=== PATIENT | female | born 1995 | race Caucasian/White ===

== ENCOUNTER 2019-02-22 06:06 | Inpatient (IN) ==
[2019-02-22] MEDS ORDERED: LACTATED RINGERS 1,000 ML IV SCH ×2 (06:30→10:00)
[2019-02-22] MEDS ORDERED: ceFAZolin 2,000 MG in PREMIX 1 EACH IV ONE (06:30)
[2019-02-22] MEDS ORDERED: CITRIC ACID/SODIUM CITRATE 30 ML UDCUP PO PRN (06:30)
[2019-02-22] MEDS ORDERED: FAMOTIDINE 20 MG/2 ML VIAL IV PRN (06:30)
[2019-02-22] MEDS ORDERED: OXYTOCIN/LR 30 UNIT/1,000 ML BAG IV PRN (06:35)
[2019-02-22] MEDS ORDERED: OXYTOCIN 10 UNIT/ML VIAL IM PRN (06:35)
[2019-02-22] MEDS ORDERED: INFLUENZA VIRUS VACCINE 0.5 ML SYRINGE IM ONE (06:43)
[2019-02-22 07:02] LABS: Basophils % 0.6 % (0.0-0.8); Eosinophils # 0.2 10*3/uL (0.0-0.87); Eosinophils % 3.2 % (0.00-10.9); Hematocrit 30.8 VOL% (35.7-47.0); Hemoglobin 10.4 GM/DL (12.0-16.0); Immature Granulocytes % 0.4 %; Immature Granulocytes Absolute 0.03 #; Lymphocytes # 1.2 10*3/uL (1.4-4.0); Lymphocytes % 17.7 % (21.3-54.2); Mean Corpuscular HGB Conc 33.8 GM/DL (32-36); Mean Platelet Volume 10.5 FL (9.6-12.0); Neutrophils % 70.1 % (38.7-73.9); Platelet Count 235 T/CUMM (130-400); Red Cell Distribution Width 12.9 % (9.3-17.3); White Blood Count 6.8 T/CUMM (4-12)
[2019-02-22] MEDS ORDERED: ROPIVACAINE 0.5% 30 ML VIAL ONE (07:19)
[2019-02-22] MEDS ORDERED: DEXAMETHASONE 4 MG/1 ML VIAL ONE (07:19)
[2019-02-22 07:22] LABS: Alanine Aminotransferase 15 U/L (13-56); Albumin 2.5 G/DL (3.4-5.0); Alkaline Phosphatase 143 U/L (45-117); Aspartate Amino Transferase 21 U/L (0-37); Bilirubin,Total < 0.39 MG/DL (0.2-1.0); Blood Urea Nitrogen 11 MG/DL (7-18); Calcium 8.5 MG/DL (8.5-10.1); Estimated Glom Filtration Rate 131 ML/MIN; Glucose 74 MG/DL (74-106); Total Protein 6.8 G/DL (6.4-8.3)
[2019-02-22] MEDS ORDERED: LACTATED RINGERS 1,000 ML IV ONE (07:25)
[2019-02-22] MEDS ORDERED: METHYLERGONOVINE 0.2 MG/1 ML AMP ONE (08:27)
[2019-02-22 09:35] LABS: Cord Arterial Blood HCO3 23.2 MMOL/L
[2019-02-22 09:38] LABS: Cord Venous Blood HCO3 24.6 MMOL/L; Cord Venous Blood PCO2 44.5 MMHG; Cord Venous Blood PO2 25.9
[2019-02-22 09:52] LABS: Apearance,Urine CLEAR (Clear); Bilirubin,Urine Negative (Negative); Blood, Urine Negative (Negative); Glucose,Urine (UA) Negative (Negative); Ketones,Urine Negative (Negative); Nitrite,Urine Negative (Negative); Protein,Urine Negative; RBC,Urine 2 /HPF (0-4); Urine Color Straw (Yellow); Urine Specific Gravity 1.006 (1.001-1.035); Urine Urobilinogen < 2.0 EU/DL (0.2-1.0)
[2019-02-22] MEDS ORDERED: ACETAMINOPHEN 325 MG TABLET PO PRN (09:58)
[2019-02-22] MEDS ORDERED: RHO(D) IMMUNE GLOBULIN 300 MCG SYRINGE IM ONE (09:58)
[2019-02-22] MEDS ORDERED: OXYTOCIN/LR 20 UNIT/1,000 ML BAG IV ONE (09:58)
[2019-02-22] MEDS ORDERED: SIMETHICONE CHEW 80 MG TABLET PO PRN (09:58)
[2019-02-22] MEDS ORDERED: ONDANSETRON 4 MG/2 ML VIAL IV PRN (09:58)
[2019-02-22] MEDS ORDERED: PHENYLEPHRINE 1 MG/10 ML SYRINGE IV ONE (10:01)
[2019-02-22] MEDS ORDERED: fentaNYL 100 MCG/2 ML VIAL ONE (10:02)
[2019-02-22] MEDS ORDERED: GLYCOPYRROLATE 0.4 MG/2 ML VIAL ONE (10:03)
[2019-02-22] MEDS ORDERED: MORPHINE 10 MG/10 ML VIAL ONE (10:03)
[2019-02-22] MEDS ORDERED: BUPIVACAINE SPINAL 0.75% 2 ML AMP SPINAL ONE (10:03)
[2019-02-22] MEDS: ceFAZolin 1,000 MG in SYRINGE 1 EACH IV SCH ×2 (15:53→21:18)
[2019-02-22 18:36] LABS: Basophils % 0.2 % (0.0-0.8); Hematocrit 31.4 VOL% (35.7-47.0); Hemoglobin 10.5 GM/DL (12.0-16.0); Immature Granulocytes % 0.4 %; Immature Granulocytes Absolute 0.05 #; Lymphocytes # 0.6 10*3/uL (1.4-4.0); Lymphocytes % 5.2 % (21.3-54.2); Mean Corpuscular HGB Conc 33.4 GM/DL (32-36); Mean Corpuscular Volume 89.2 FL (87-102); Mean Platelet Volume 10.6 FL (9.6-12.0); Monocytes % 4.9 % (1.7-12.7); Neutrophils % 89.3 % (38.7-73.9); Platelet Count 226 T/CUMM (130-400); Red Blood Count 3.52 MC/CUMM (3.8-5.5); Red Cell Distribution Width 12.8 % (9.3-17.3); White Blood Count 11.4 T/CUMM (4-12)
[2019-02-22] MEDS: IBUPROFEN 800 MG TABLET PO PRN (21:24)
[2019-02-22] MEDS: DOCUSATE SODIUM 100 MG CAPSULE PO SCH (21:24)
[2019-02-22] MEDS ORDERED: METOCLOPRAMIDE 10 MG TABLET ONE (23:26)
[2019-02-22] MEDS: METOCLOPRAMIDE 10 MG TABLET PO SCH (23:41)
[2019-02-23] MEDS ORDERED: ceFAZolin 1,000 MG in SYRINGE 1 EACH IV SCH
[2019-02-23 05:55] LABS: Basophils % 0.3 % (0.0-0.8); Eosinophils # 0.1 10*3/uL (0.0-0.87); Hematocrit 29.6 VOL% (35.7-47.0); Hemoglobin 9.7 GM/DL (12.0-16.0); Immature Granulocytes % 0.5 %; Immature Granulocytes Absolute 0.06 #; Lymphocytes # 1.4 10*3/uL (1.4-4.0); Mean Corpuscular HGB Conc 32.8 GM/DL (32-36); Mean Corpuscular Volume 90.2 FL (87-102); Mean Platelet Volume 10.3 FL (9.6-12.0); Monocytes % 9.3 % (1.7-12.7); Neutrophils % 76.9 % (38.7-73.9); Platelet Count 217 T/CUMM (130-400); Red Blood Count 3.28 MC/CUMM (3.8-5.5); Red Cell Distribution Width 12.9 % (9.3-17.3); White Blood Count 11.5 T/CUMM (4-12)
[2019-02-23] MEDS: IBUPROFEN 800 MG TABLET PO PRN ×2 (06:04→20:38)
[2019-02-23] MEDS: METOCLOPRAMIDE 10 MG TABLET PO SCH ×2 (07:18→18:16)
[2019-02-23] MEDS: FERROUS SULFATE 325 MG TABLET PO SCH (08:58)
[2019-02-23] MEDS: DOCUSATE SODIUM 100 MG CAPSULE PO SCH ×2 (08:58→20:38)
[2019-02-23] MEDS: MULTIVITAMIN (PRENATAL) TABLET PO SCH (08:58)
[2019-02-23] MEDS: MAGNESIUM HYDROXIDE SUSP 30 ML UDCUP PO PRN (09:42)
[2019-02-24] MEDS: METOCLOPRAMIDE 10 MG TABLET PO SCH ×2 (00:17→08:25)
[2019-02-24] MEDS: MAGNESIUM HYDROXIDE SUSP 30 ML UDCUP PO PRN (04:33)
[2019-02-24] MEDS: DOCUSATE SODIUM 100 MG CAPSULE PO SCH (08:26)
[2019-02-24] MEDS: MULTIVITAMIN (PRENATAL) TABLET PO SCH (08:27)
[2019-02-24] MEDS: FERROUS SULFATE 325 MG TABLET PO SCH (08:27)
[2019-02-24] MEDS ORDERED: oxyCODONE/ACETAMINOPHEN 5-325 MG TABLET PO PRN (08:40)
[2019-02-24] MEDS: IBUPROFEN 800 MG TABLET PO PRN (11:41)
[2019-02-24 16:12] VITALS: BP 117/62
== END 2019-02-24 21:35 | disposition home or self-care (01) | DRG 540 ==
LOC: N.LD 06:06 → N.OB 13:35
PROVIDERS: ADMIT Obstetrics & Gynecology; ATTEND Obstetrics & Gynecology
PROC: LDCSECT (ICD-10-PCS; 2019-02-22 09:00)